=== PATIENT | female | born 1955 | race Caucasian/White ===

== ENCOUNTER 2016-09-20 10:18 | Outpatient (CLI) | payer BC | END 2016-09-20 23:59 | disposition home or self-care (01) | LOC: WOU 10:18 | PROVIDERS: ATTEND Surgery | DX: L98.9 Disorder of the skin and subcutaneous tissue, unspecified (principal); L72.3 Sebaceous cyst; Z90.11 Acquired absence of right breast and nipple; Z85.3 Personal history of malignant neoplasm of breast; Z83.3 Family history of diabetes mellitus; Z82.3 Family history of stroke; Z82.49 Family history of ischemic heart disease and other diseases of the circulatory system; L57.0 Actinic keratosis; R22.32 Localized swelling, mass and lump, left upper limb | CPT/HCPCS: 88305-TC; 88312-TC; A6209; A6402; J3490 ==

== ENCOUNTER 2016-09-30 14:30 | Outpatient (CLI) | payer BC | END 2016-09-30 23:59 | disposition home or self-care (01) | LOC: WOU 14:30 | PROVIDERS: ATTEND Surgery | DX: L98.9 Disorder of the skin and subcutaneous tissue, unspecified (principal); L72.3 Sebaceous cyst; Z90.11 Acquired absence of right breast and nipple; Z85.3 Personal history of malignant neoplasm of breast; Z83.3 Family history of diabetes mellitus; Z82.3 Family history of stroke; Z82.49 Family history of ischemic heart disease and other diseases of the circulatory system; L57.0 Actinic keratosis | CPT/HCPCS: G0463 ==

== ENCOUNTER 2016-10-18 12:50 | Outpatient (CLI) | payer BC | END 2016-10-18 23:59 | disposition home or self-care (01) | LOC: WOU 12:50 | PROVIDERS: ATTEND Surgery | DX: Z48.817 Encounter for surgical aftercare following surgery on the skin and subcutaneous tissue (principal); L98.9 Disorder of the skin and subcutaneous tissue, unspecified; L72.3 Sebaceous cyst; Z85.3 Personal history of malignant neoplasm of breast | CPT/HCPCS: G0463 ==

== ENCOUNTER 2016-11-04 12:55 | Outpatient (CLI) | payer BC | END 2016-11-04 23:59 | disposition home or self-care (01) | LOC: WOU 12:55 | PROVIDERS: ATTEND Surgery | DX: Z48.817 Encounter for surgical aftercare following surgery on the skin and subcutaneous tissue (principal); L72.3 Sebaceous cyst; Z85.3 Personal history of malignant neoplasm of breast | CPT/HCPCS: G0463 ==

== ENCOUNTER 2016-11-18 13:49 | Outpatient (CLI) | payer BC | END 2016-11-18 23:59 | disposition home or self-care (01) | LOC: WOU 13:49 | PROVIDERS: ATTEND Surgery | DX: L72.3 Sebaceous cyst (principal); Z85.3 Personal history of malignant neoplasm of breast; Z90.11 Acquired absence of right breast and nipple; L57.0 Actinic keratosis | CPT/HCPCS: 11423; 13132; 88304; 88305; A6402; J3490 ==

== ENCOUNTER 2016-11-29 12:50 | Outpatient (CLI) | payer BC | END 2016-11-29 23:59 | disposition home or self-care (01) | LOC: WOU 12:50 | PROVIDERS: ATTEND Surgery | DX: Z48.817 Encounter for surgical aftercare following surgery on the skin and subcutaneous tissue (principal); L72.3 Sebaceous cyst; Z85.3 Personal history of malignant neoplasm of breast; L57.0 Actinic keratosis | CPT/HCPCS: G0463 ==

== ENCOUNTER 2016-12-16 12:40 | Outpatient (CLI) | payer BC | END 2016-12-16 23:59 | disposition home or self-care (01) | LOC: WOU 12:40 | PROVIDERS: ATTEND Surgery | DX: Z48.817 Encounter for surgical aftercare following surgery on the skin and subcutaneous tissue (principal); L72.3 Sebaceous cyst; Z85.3 Personal history of malignant neoplasm of breast | CPT/HCPCS: 99213; A6402; G0463 ==

== ENCOUNTER 2017-12-22 15:00 | Outpatient (CLI) | payer BC | END 2017-12-22 23:59 | disposition home or self-care (01) | LOC: WOU 15:00 | PROVIDERS: ATTEND Surgery | DX: L98.9 Disorder of the skin and subcutaneous tissue, unspecified (principal); L72.3 Sebaceous cyst; Z85.3 Personal history of malignant neoplasm of breast; Z90.11 Acquired absence of right breast and nipple | CPT/HCPCS: G0463; Z7610 ==

== ENCOUNTER 2018-01-30 12:51 | Outpatient (CLI) | payer BC | END 2018-01-30 23:59 | disposition home or self-care (01) | LOC: WOU 12:51 | PROVIDERS: ATTEND Surgery | DX: L72.3 Sebaceous cyst (principal); L90.5 Scar conditions and fibrosis of skin; Z85.3 Personal history of malignant neoplasm of breast | CPT/HCPCS: 99214; Z7610; G0463 ==

== ENCOUNTER 2019-02-19 12:19 | Outpatient (CLI) | payer BC | END 2019-02-19 23:59 | disposition home or self-care (01) | LOC: WOU 12:19 | PROVIDERS: ATTEND Surgery | DX: C44.01 Basal cell carcinoma of skin of lip (principal); L72.3 Sebaceous cyst; L90.5 Scar conditions and fibrosis of skin; Z85.3 Personal history of malignant neoplasm of breast; Z98.82 Breast implant status | CPT/HCPCS: G0463 ==

== ENCOUNTER 2019-03-05 10:32 | Outpatient (CLI) | payer BC ==
[2019-03-05 11:45] LABS: BASOPHILS % (AUTO) 0.7 % (0.0-2.0); EOSINOPHILS % (AUTO) 1.9 % (0.0-6.0); HEMATOCRIT 43 % (33-45); HEMOGLOBIN 13.9 g/dL (11.5-14.8); LYMPHOCYTES # (AUTO) 3.5 /CMM (0.8-4.8); LYMPHOCYTES % (AUTO) 46.4 % (20.0-44.0); MEAN CORPUSCULAR HGB CONC 33 g/dl (31.0-36.0); MEAN CORPUSCULAR VOLUME 96 fL (82-100); MONOCYTES # (AUTO) 0.4 /CMM (0.1-1.30); MONOCYTES % (AUTO) 5.4 % (2.0-12.0); NEUTROPHILS # (AUTO) 3.4 /CMM (1.8-8.9); NEUTROPHILS % (AUTO) 45.6 % (43.0-81.0); PLATELET COUNT (AUTO) 233 /CMM (150-450); RED BLOOD CELL COUNT(AUTO) 4.46 MIL/uL (4.0-5.2); WHITE BLOOD COUNT (AUTO) 7.5 K/uL (4.3-11.0)
[2019-03-05 11:53] LABS: CREATININE 0.8 mg/dL (0.6-1.3); POTASSIUM 4.2 mmol/L (3.5-5.1)
== END 2019-03-05 23:59 | disposition home or self-care (01) ==
LOC: LAB 10:32
PROVIDERS: ATTEND Surgery
DX: Z01.818 Encounter for other preprocedural examination (principal); C44.01 Basal cell carcinoma of skin of lip
CPT/HCPCS: 36415; 71045-TC; 80048-TC; 80061-TC; 85025-TC; 85730-TC

== ENCOUNTER 2019-03-12 05:45 | Inpatient (IN) | payer BC ==
[2019-03-12] VITALS (7 sets, daily range): BP systolic 103–122; BP diastolic 55–84
[~2019-03-12] VITALS: Ht 175.3 cm; Wt 73.0 kg
--- NOTE | 2019-03-12 06:10 | NUR ---
RN NOTES/ASSESSMENT: PT BROUGHT TO THE UNIT VIA WHEELCHAIR, ACCOMPANIED BY ADMITTING. PT IS A/O X4, ON RA RESPIRATIONS EVEN AND UNLABORED. DENIES ANY PAIN OR DISCOMFORT AT THIS TIME. AMBULATES WITH STEADY GAIT. ORIENTED PT TO UNIT POLICY AND HOURLY ROUNDING. SKIN ASSESSMENT PERFORMED. IV ACCESS INSERTED ON LEFT AC G 20, WITH GOOD BLOOD RETURN NOTED, PLACED ON SALINE LOCK. PT WILL BE UNDERGOING RESECTION OF UPPER LIP, BASAL CELL CARCINOMA AND RECONSTRUCTION WITH LOCAL FLAP TODAY AT 0700AM WITH DR JESS BE. ALL CONSENT SIGNED X 3 (ANESTHESIA, PROCEDURE AND BLOOD). PREOP CHECKLIST COMPLETED. MRSA SWAB OBTAINED. VS TAKEN AND RECORDED. INVENTORY OF BELONGINGS COMPLETED BY ANY REGAN. SAFETY PRECAUTIONS FOR FALL INITIATED, CALL LIGHT IN REACH, WILL CONTINUE MONITORING PT.
[2019-03-12] MEDS ORDERED: FENTANYL PF 100MCG/2ML AMPUL ONE (06:28)
[2019-03-12] MEDS ORDERED: MIDAZOLAM HCL 2 MG/2ML VIAL ONE (06:28)
--- NOTE | 2019-03-12 06:42 | NUR ---
RN NOTES: PT SEO COORDINATOR BY OR STAFF, BROUGHT TO SURGERY AREA
[2019-03-12] MEDS ORDERED: BUPIVACAINE MPF 0.5% W/EPI INJ 30 ML VIAL ONE (06:57)
[2019-03-12] MEDS ORDERED: LIDOCAINE HCL/MPF 1% 30 ML VIAL IJ ONE (06:57)
[2019-03-12] MEDS ORDERED: BACITRACIN 50000 UNITS/VIAL ONE (06:58)
--- NOTE | 2019-03-12 06:58 | NUR ---
RN CLOSING NOTES: PT IN SURGERY. BELONGING OF PT AT BED SIDE CABINET/DRAWER. WILL GIVE REPORT TO DAY RN FOR NICHOLE.
--- NOTE | 2019-03-12 08:20 | NUR ---
MS RN NOTES PATIENT RETURNED FROM SURGERY IN STABLE CONDITION. PATIENT HAD MAC ANESTHESIA. PATIENT ALERT, ORIENTED X4. WITH STERI STRIP ON UPPER LIP. VS WNL. PERIPHERAL IV INTACT, PATIENT. PATIENT RESTING COMFORTABLE WILL CONTINUE TO MONITOR.
[2019-03-12] MEDS ORDERED: TRAMADOL HCL 50 MG TABLET PO PRN (08:30)
[2019-03-12] MEDS ORDERED: HYDROCODONE/APAP 5/325MG 1 EACH TABLET PO PRN (08:30)
--- NOTE | 2019-03-12 17:05 | NUR ---
MS RN NOTES PATIENT DISCHARGE HOME WITH IN STABLE CONDITION. NO SOB OR ACUTE DISTRESS NOTED. PATIENT DAY SURGERY PATIENT. OK TO DISCHARGE SAME DAY. PATIENT ALERT,ORIENTED X4, AMBULATORY. ALL NEEDS MET. DISCHARGE PROTOCOL FOLLOWED. PERIPHERAL IV REMOVED, ID BAND REMOVED. DISCHARGE TEACHING PROVIDED VERBALIZED UNDERSTANDING. ALL BELONGINGS ACCOUNTED FOR, BELONGING LIST SIGNED. ESCORTED TO CAR BY TEAM DRIVER.
== END 2019-03-12 17:10 | disposition home or self-care (01) | DRG 607 ==
LOC: DS 05:45 → MED 05:51
PROVIDERS: ADMIT Surgery; ATTEND Surgery
PROC: 0CB0XZX Excision of Upper Lip, External Approach, Diagnostic (ICD-10-PCS; principal; 2019-03-12)
DX: C44.01 Basal cell carcinoma of skin of lip (principal); Z96.642 Presence of left artificial hip joint; Z90.11 Acquired absence of right breast and nipple
CPT/HCPCS: 36415; 82962-TC; 87081-TC; 88305-TC; A6402; G0378; J0690; J2250; J2704; J3010; J3490

== ENCOUNTER 2019-03-19 08:35 | Outpatient (CLI) | payer BC | END 2019-03-19 23:59 | disposition home or self-care (01) | LOC: WOU 08:35 | PROVIDERS: ATTEND Surgery | DX: Z48.3 Aftercare following surgery for neoplasm (principal); C44.01 Basal cell carcinoma of skin of lip; L90.5 Scar conditions and fibrosis of skin; Z85.3 Personal history of malignant neoplasm of breast; Z79.82 Long term (current) use of aspirin | CPT/HCPCS: G0463 ==

== ENCOUNTER 2019-04-23 09:10 | Outpatient (CLI) | payer BC | END 2019-04-23 23:59 | disposition home or self-care (01) | LOC: WOU 09:10 | PROVIDERS: ATTEND Surgery | DX: L72.3 Sebaceous cyst (principal); L90.5 Scar conditions and fibrosis of skin; Z85.3 Personal history of malignant neoplasm of breast; Z85.828 Personal history of other malignant neoplasm of skin; Z79.82 Long term (current) use of aspirin | CPT/HCPCS: G0463 ==

== ENCOUNTER 2019-12-13 11:37 | Day surgery (SDC) | payer BC ==
[~2019-12-13] VITALS: Ht 172.7 cm; Wt 73.9 kg
[2019-12-13 13:18] LABS: CALCIUM, SERUM 9.6 mg/dL (8.5-10.1); CARBON DIOXIDE 29 mmol/L (21-32); CHLORIDE 105 mmol/L (98-107); CREATININE 0.9 mg/dL (0.6-1.3); GLUCOSE 96 mg/dL (74-106); POTASSIUM 4.9 mmol/L (3.5-5.1); SODIUM SERUM 140 mmol/L (136-145); UREA NITROGEN, BLOOD 19 mg/dL (7-18)
[2019-12-13] MEDS ORDERED: IOHEXOL-350 100 ML VIAL IV ONE (13:27)
[2019-12-13] MEDS ORDERED: IV NS 0.9% 250 ML IV ONE (13:28)
[2019-12-13] MEDS ORDERED: CT SWABBABLE VALVE TRANS SET 1 EA INFUS.SET MC ONE (13:28)
[2019-12-13] MEDS ORDERED: NITROGLYCERIN 0.4 MG/TAB BOTTLE ONE (13:59)
[2019-12-13] MEDS ORDERED: NITROGLYCERIN 0.4 MG/TAB BOTTLE SL ONE (14:00)
[2019-12-13] MEDS ORDERED: METOPROLOL TARTRATE INJ 5 MG/5 ML AMPUL IVP PRN (14:00)
[2019-12-13] MEDS ORDERED: METOPROLOL TARTRATE INJ 5 MG/5 ML AMPUL ONE (14:01)
--- NOTE | 2019-12-13 14:23 | NUR ---
@1415 Patient tolerated the procedure but complains of throbbing headache d/t nitroglycerin. @1422 Patient is discharged in stable condition and denies any discomfort.
== END 2019-12-13 14:28 | disposition home or self-care (01) ==
LOC: CT 11:37
PROVIDERS: ATTEND Internal Medicine Interventional Cardiology
DX: I25.10 Atherosclerotic heart disease of native coronary artery without angina pectoris (principal)
CPT/HCPCS: 36415; 75574; 80048; 84484; J3490; J7050; Q9967

== ENCOUNTER 2020-02-15 11:39 | Outpatient (CLI) | payer BC | END 2020-02-15 23:59 | disposition home or self-care (01) | LOC: CT 11:39 | DX: S32.592A Other specified fracture of left pubis, initial encounter for closed fracture (principal); X58.XXXA Exposure to other specified factors, initial encounter; Y93.89 Activity, other specified; Y92.89 Other specified places as the place of occurrence of the external cause; Y99.8 Other external cause status; Z96.643 Presence of artificial hip joint, bilateral | CPT/HCPCS: 72192-TC ==